=== PATIENT | female | born 1945 | race Caucasian/White ===

== ENCOUNTER 2016-10-22 06:18 | Day surgery (SDC) | payer MEDICARE, OTHER ==
[2016-10-19 21:33] LABS: BUN (BLOOD UREA NITROGEN) 20 MG/DL (6-23); CALCIUM, SERUM 9.3 MG/DL (8.5-10.4); CHLORIDE, SERUM 103 MMOL/L (96-112); CO2 (CARBON DIOXIDE) 26 MMOL/L (24-34); GFR AFRICAN AMERICAN 113 ML/MIN (>=60); GFR NON AFRICAN AMERICAN 97 ML/MIN (>=60); GLUCOSE, SERUM 89 MG/DL (60-99); POTASSIUM, SERUM 3.9 MMOL/L (3.5-5.3); SODIUM, SERUM 140 MMOL/L (135-148)
[~2016-10-22 06:18] MED LIST: ADVIL PO; ASAB PO; BENTYL10 PO; CALTRA600D PO; EVISTA60 PO; HYZAAR 50/12.51 TAB PO; HYZAAR1 TAB PO; IMITREX100 MG PO; LORTAB 5 PO; MOBIC7.5 PO; MULTIPLE VIT PO; NEUR300 PO; OCCUVITE PO; STOOL SOFTEN240 MG; T PO; ULTRAM50 PO; VITC500 PO; VOLTAREN1 % TOP; ZYRTEC ALLGY10 MG PO
== END 2016-10-22 13:44 | disposition home or self-care (01) ==
LOC: SDC 06:18
PROVIDERS: Ophthalmology
PROC: 08RJ3JZ Replacement of Right Lens with Synthetic Substitute, Percutaneous Approach (ICD-10-PCS; principal; 2016-10-22 08:30)
DX: H25.11 Age-related nuclear cataract, right eye (principal); Z88.8 Allergy status to other drugs, medicaments and biological substances; I10 Essential (primary) hypertension; G43.909 Migraine, unspecified, not intractable, without status migrainosus
CPT/HCPCS: 36415; 80048; 85014; 85018; 93005; C1780; J2405